=== PATIENT | female | born 1980 | race Caucasian/White ===

== ENCOUNTER 2017-02-19 23:03 | Observation (INO) ==
[2017-02-19] MEDS ORDERED: SALINE FLUSH 10ml SYRINGE IVF PRN (23:16)
[2017-02-19] MEDS ORDERED: NS 1,000 ML IV ONE (23:17)
[2017-02-19] MEDS ORDERED: KETOROLAC 30 MG/ML INJECTION IVP ONE (23:17)
[2017-02-19] MEDS ORDERED: METOCLOPRAMIDE 10mg/2ml INJECTION IVP ONE (23:17)
--- NOTE | 2017-02-19 23:21 | Emergency Department Report ---
Abdominal Pain HPI - General Chief Complaint: Abdominal Pain Stated Complaint: Abdominal pain Time Seen by Provider: 02/19/17 23:07 Source: patient Mode of arrival: ambulatory Limitations: no limitations - History of Present Illness HPI narrative: Patient has had low pelvic and periumbilical cramping abdominal pain for 3 days , worsening, without relenting. Patient states that the pain began as though her normal midcycle mittelschmerz, but the pain didn't go away as usual, and has now progressively worsened. Pain seems to be mostly in the midline, but radiates diffusely throughout the abdomen. No sober symptoms in the past, patient has had her appendix out, has no history of stones of any type. - Related Data Home Medications Medication Instructions Recorded Confirmed No known Home medications [No home 02/19/17 02/19/17 meds] Allergies Allergy/AdvReac Type Severity Reaction Status Date / Time No Known Allergies Allergy Verified 02/19/17 23:21 Review of Systems All systems: reviewed and negative except as stated PFSH Surgical History: Appendectomy - Social History Smoking status: Never smoker Substance use type: does not use Alcohol intake frequency: does not drink Physical Exam - Limitations Limitations: no limitations - General General appearance: alert, in distress (mild) - Normal Exams: Head:: Normocephalic without trauma Eyes:: Pupils are PERRLA w/ EOMI, No scleral icterus, irritation, or foreign bodies noted ENMT:: No facial trauma, nasal exudates, pharyngeal erythema, or exudates are noted Neck:: Full range of motion, without adenopathy, JVD, bruits or thyromegaly Chest/Respirations:: Clear all valles, with good airflow, and symmetry bilaterally Cardiovascular:: Regular rate and rhythm, without murmur or gallop, Pulses 2+ all extremities, capillary refill, <2 seconds all extremities Lymphatic:: No lymphadenopathy, or lymphedema noted Musculoskeletal:: No tenderness, or deformity noted, good range of motion, all extremities Integumentary:: No rashes, hives, or bruising noted, hair and nails, without abnormality Neurological:: Patient is alert, and oriented, cranial nerves, motor/sensory/ cerebellar, exams w/o gross deficits, to observation Psychiatric:: Patient exhibits, appropriate attention, emotion and affect - Abdominal Exam Abdominal exam: Present: soft, tenderness (moderate periumbilical tenderness, no guarding, no rebounding), normal bowel sounds. Absent: distention, guarding , rebound, Tee's sign, Rovsing's sign, tenderness at McBurney's Point, mass, bruit, pulsatile mass Abdominal Pain - MDM Narrative Medical decision making narrative: Patient given Toradol 30 mg, Reglan 5 mg, and 1 L normal saline IV fluid bolus - to relief of symptoms U A/P - Stone/positive CBC - normal CMP/L - normal with minimally elevated liver enzymes, consistent with mild ileus /early obstructive problem. However bilirubin and alkaline phosphatase are normal, most indicative of ileus CT abdomen - initially ordered, canceled after positive test. Quantitative hCG -7200 OB/gallbladder sonogram is ordered for tonight to verify intrauterine and evaluate for possible gallbladder disease Blood or sono normal, OB sono shows small right adnexal cyst that could represent corpus gluteal cyst versus ectopic. Patient also has a small amount of free fluid in the pelvis bilaterally left greater than right. Case is discussed with Dr. Hahn, we will admit the patient for observation to surgery, plan on repeat sonogram in the morning with possible surgery for ectopic . Differential diagnosis as well as care plan were discussed with the patient and her , all questions were answered. - Lab Data Result diagrams: 02/19/17 23:32 02/19/17 23:32 Disposition Clinical Impression: Ectopic Qualifiers: Location of ectopic : tubal Intrauterine status: without intrauterine Qualified Code(s): O00.10 - Tubal without intrauterine Disposition: 02 To OBS NM Condition: Improved Prescriptions: No Action No known Home medications [No home meds] [facility] Referrals: Deja Alarcon MD [Family Provider] - - Seen By: physician
[2017-02-20] MEDS ORDERED: ONDANSETRON 4 MG/2 ML INJECTION IVP PRN (03:10)
[2017-02-20] MEDS ORDERED: HYDROMORPHONE 2 MG/ML INJECTION IVP PRN (03:10)
[2017-02-20] MEDS ORDERED: NS 1,000 ML IV SCH (03:15)
[2017-02-20 03:52] VITALS: BMI 20.8
[2017-02-20 04:09] VITALS: O2SAT 98
[2017-02-20 07:21] VITALS: BP 105/64; PULSE 97; RESP 16; TEMP 98.3
--- NOTE | 2017-02-20 07:57 | Ultrasound Report ---
Indication: possible ectopic , reported beta-hCG level of 7200 PROCEDURE: US ob<14 wks with transvag: Encounter: Initial Comparison: OB ultrasound from earlier today FINDINGS: Transvaginal and transabdominal pelvic imaging was performed. There is no intrauterine . The uterine parenchyma is homogeneous without fibroids. The endometrial stripe measures 4 mm in thickness. There is no evidence of focal endometrial thickening or endometrial fluid. There is a cystic lesion in the right ovary measuring 2.1 x 2 x 2.2 cm. This shows some increased peripheral flow on the color Doppler imaging. Right ovary measures 4.7 x 3.3 x 4.2 cm. Left ovary measures 1.9 x 1.5 x 1.9 cm. There is a small amount of complex free fluid near the left ovary that could represent hemorrhage. IMPRESSION: No intrauterine identified. The reported beta hCG level is above the discriminatory threshold. Findings are suspicious for a right ovarian ectopic . Spontaneous or early normal are felt to be unlikely given the thin endometrial stripe. Obstetrical consultation is recommended. There is a preliminary report by [facility]. .
--- NOTE | 2017-02-20 08:02 | OB/GYN History & Physical ---
- History of Present Illness Date of Admission: 02/20/17 03:32 Reason for Admission: other (Possible ectopic ) History of Present Illness: presented to the ER last PM with c/o 3 days of periumbilical abdominal pain. She was given Toradol and IV fluids last PM, and her pain has resolved. LMP was 02/05/17, which would make her 2w1d. She says there "hasn't been opportunity" to get since her LMP. Her previous menses was 01/03/17, which would make her 6w6d, which is more consistent with her quant of 7200. They use natural family planning for contraception. Sono last PM showed an empty uterus, small free fluid, and 2 cm right ovarian cyst. Since her VS were stable, Hgb 11.3, and mild abdominal pain last PM, Dr. Hood and I decided to admit her for observation and repeat her sono and labs this AM. : 6 Para: 5 - OB History #1 Delivery Type: vaginal delivery #2 Delivery Type: vaginal delivery #3 Delivery Type: vaginal delivery #4 Delivery Type: vaginal delivery #5 Delivery Type: vaginal delivery Review of Systems - Constitutional Constitutional: Absent: fever(s), headache(s) - Cardiovascular Cardiovascular: Absent: chest pain, palpitations - Respiratory Respiratory: Absent: cough, dyspnea - Gastrointestinal Gastrointestinal: Absent: change in bowel habits, nausea, vomiting - Genitourinary Genitourinary: Absent: dysuria, hematuria, vaginal discharge Menstruation: Present: period normal - Musculoskeletal Musculoskeletal: Absent: arthralgias, myalgias - Neurological Neurological: Absent: confusion, weakness [facility] Patient Stated Medical History None Other Reproductive Yes: last menstrual period=02/05/17 Surgical History: Appendectomy Family History: Noncontributory - Social History Smoking status: Never smoker Medications Home Medications Medication Instructions Recorded Confirmed Type No known Home medications [No home 02/19/17 02/19/17 History meds] Allergies Allergy/AdvReac Type Severity Reaction Status Date / Time No Known Allergies Allergy Verified 02/19/17 23:21 DRAPERY EXAMINER Exam Vital signs: Temperature 98.3 F 02/20/17 07:21 Pulse Rate 97 02/20/17 07:21 Respiratory Rate 16 02/20/17 07:21 Blood Pressure 105/64 02/20/17 07:21 Pulse Oximetry 98 02/20/17 07:21 Oxygen Delivery Method Room Air - Constitutional Present: no acute distress Comments: Resting comfortably in bed. - Routine Respiratory Exam Comments: Nonlabored - Routine Abdominal Exam Present: soft, non distended. Absent: rebound, guarding Comments: Mildly tender below the umbilicus. - Routine Neurological Exam Present: alert, oriented X3 - Routine Skin Exam Present: intact - Routine Psychiatric Exam Present: normal affect DRAPERY EXAMINER Results - Labs CBC & Chem 7: 02/20/17 06:49 02/19/17 23:32 Labs: UA Ur Collection Type Urine, clean catch 02/19/17 23:32 Urine Color Yellow (YELLOW) 02/19/17 23:32 Urine pH 6.0 (5.0-8.0) 02/19/17 23:32 Ur Specific Hundred <=1.005 (1.015-1.025) L 02/19/17 23:32 Urine Protein Negative (NEGATIVE) 02/19/17 23:32 Urine Glucose (UA) Negative (NEGATIVE) 02/19/17 23:32 Urine Ketones Negative (NEGATIVE) 02/19/17 23:32 Urine Occult Blood Negative (NEGATIVE) 02/19/17 23:32 Urine Nitrate Negative (NEGATIVE) 02/19/17 23:32 Urine Bilirubin Negative (NEGATIVE) 02/19/17 23:32 Urine Urobilinogen 0.2 EU/DL (NORMAL) 02/19/17 23:32 Ur Leukocyte Esterase 1+ (NEGATIVE) A 02/19/17 23:32 - Impressions The pictures from her pelvic sono this AM look the same as her pictures from last PM. Awaiting read from radiology. Assessment and Plan (1) , location unknown Current visit: Yes Status: Acute Discussed with patient the different possibilities. It would be rare to have a normal IUP with a quant as high as 7200. This could also be a SAB or ectopic. Options would be to repeat her quant in 48 hours, laparoscopy, or methotrexate. Since she is not currently having any pain, she doesn't want to do methotrexate. Her Hgb fell from 11.3 to 10.6, but this could be dilutional with the IV fluids we've given her. Her OB-DRAPERY EXAMINER is Dr. Mcfarlane in [place], and she wants to follow with him. When I have the reads on her sonos back, I will call Dr. Mcfarlane and discuss with him. Questions answered.
--- NOTE | 2017-02-20 08:04 | Ultrasound Report ---
Indication: PERIUMBILICAL ABD PAIN WITH EARLY . PROCEDURE: US ob<14 wks with transvag: Encounter: Initial Comparison: None FINDINGS: Transvaginal and transabdominal pelvic imaging was performed. There is no intrauterine identified. The uterus uterine parenchyma is homogeneous without fibroids. The endometrial stripe measures 7 mm in thickness. There is no evidence of focal endometrial mass or fluid. Right ovary shows a cystic structure with increased peripheral vascularity on the color Doppler imaging. This measures 2.2 x 1.9 cm in size. Right ovary measures 4.3 x 3.3 x 3.1 cm in size. Left ovary appears normal and measures 2.4 x 1.8 x 2 7 m in size. There is a small amount of mildly complex free fluid adjacent to the left ovary. IMPRESSION: No intrauterine identified. Cystic lesion with increased peripheral flow in the right ovary suspicious for an ovarian ectopic . Corpus luteum is also within the differential. No pole or yolk sac identified. Spontaneous or early normal are felt to be less likely given the thin endometrial stripe and the hCG level of 7200. Obstetrical consultation is recommended along with serial beta hCG levels and short-term follow-up ultrasound as indicated. There is a preliminary report by [facility]. .
--- NOTE | 2017-02-20 08:09 | Ultrasound Report ---
Indication: PERIUMBILICAL PAIN WITH ELEVATED LIVER ENZYMES PROCEDURE: US gall bladder: Encounter: Initial Comparison: None Technique: Grayscale and color Doppler sonographic imaging of the right upper quadrant of the abdomen was performed. Findings: Hepatic parenchyma is homogeneous without evidence for focal mass. The gallbladder is normal. There is no wall thickening, pericholecystic fluid, sonographic Tee's sign or cholelithiasis. Both the intra and extrahepatic biliary system are of normal caliber with the common duct measuring 3 mm in dimension. Visualized portions of the head and body of the pancreas are unremarkable. The right kidney is present without collecting system dilatation. The right kidney measures 9.7 cm in length. Impression: Normal right upper quadrant sonogram. There is a preliminary report by [facility]. .
== END 2017-02-20 10:27 | disposition home or self-care (01) ==
LOC: SRG 23:03 → ED 23:03 → SRG 02-20 03:40
PROVIDERS: ADMIT Obstetrics & Gynecology; ATTEND Obstetrics & Gynecology